=== PATIENT | female | born 1985 | race Caucasian/White ===

== ENCOUNTER → 2017-01-30 | Outpatient (CLI) | payer BC ==
[2011-02-03 15:06] VITALS: BP 118/64
[2017-01-30 08:39] LABS: HEMATOCRIT 43.1 % (37.0-47.0); HEMOGLOBIN 14.2 g/dL (12.0-16.0); MEAN CORPUSCULAR HEMOGLOBIN 30.2 PG (27-31); MEAN CORPUSCULAR HGB CONC 32.9 g/dL (33-37); MEAN CORPUSCULAR VOLUME 91.7 FL (81-99); MEAN PLATELET VOLUME 10.3 FL (7.4-12.2); RED BLOOD COUNT 4.7 10^6/uL (4.20-5.40)
[2017-01-30 08:54] LABS: BLOOD UREA NITROGEN 16 mg/dL (7-22); BUN/CREATININE RATIO 22.85 (6-20); EST GLOMERULAR FILTRATION > 60 (>60 ml/min/1.73m(2))
[2017-01-30 08:55] LABS: CALCIUM 8.9 mg/dL (8.7-10.7); SERUM ALBUMIN 4.1 g/dL (3.5-4.8)
[2017-01-30 09:49] LABS: CHOL/HDL RATIO 1.95 RATIO (0-4.0); LDL CHOLESTEROL,CALCULATED 56.2 mg/dL
[2017-01-30 14:21] LABS: FREE T4 (FREE THYROXINE) 1.02 ng/dL (0.93-1.71)
[2017-01-30 14:39] LABS: FERRITIN 22.7 ng/mL (12.00-336.70)
== END ==
LOC: LAB 07:55
PROVIDERS: ATTEND Family Medicine
DX: Z00.00 Encounter for general adult medical examination without abnormal findings (principal); R53.83 Other fatigue
CPT/HCPCS: 36415; 80053; 80061; 82607; 82728; 83540; 83550; 84439; 84443; 85027